=== PATIENT | female | born 2000 | race African-American/Black ===

== ENCOUNTER 2019-05-01 08:29 | Outpatient (CLI) | payer OTHER ==
--- NOTE | 2019-05-01 09:14 | Ultrasound Report ---
ABDOMINAL ULTRASOUND LIMITED (RIGHT UPPER QUADRANT) HISTORY: Abdominal pain and nausea for 2 weeks. COMPARISON: None. TECHNIQUE: Multiple real-time ultrasonographic grayscale images were obtained of the right upper abdo men. FINDINGS: Pancreas: Normal. Liver: No significant abnormality. Gallbladder: No stones, wall thickening or pericholecystic fluid. The gallbladder wall measures 2.1 m m. Common bile duct: 3.9 mm. Right kidney: No significant abnormality. No hydronephrosis. Kidney measures Kidney measures 11.1 cm. Additional findings: None. IMPRESSION: 1. Normal study. Signer Name: Chapo Richards MD Signed: 05/01/2019 9:09 AM Workstation Name: [id number]
== END 2019-05-01 08:30 | disposition home or self-care (01) ==
LOC: SPVWC 08:29
PROVIDERS: ATTEND Family Medicine
DX: R11.0 Nausea (principal); R10.11 Right upper quadrant pain
CPT/HCPCS: 76705